=== PATIENT | male | born 1995 | race Two or more races ===

== ENCOUNTER 2018-09-11 17:50 | Emergency (ER) | payer BC ==
[2018-09-11] MEDS ORDERED: predniSONE 10 MG Tab ONE (18:20)
--- NOTE | 2018-09-11 23:32 | ER ---
DATE OF SERVICE: 09/11/2018 HISTORY OF PRESENT ILLNESS: A 23-year-old male here with complaints of both eyes being red and somewhat mattery. He states they burn and there is some discomfort. This started yesterday. The patient denies any injury to his eyes. He has had some eye infections in the past. He states he does wear contacts. He does not have glasses with him. OBJECTIVE: GENERAL APPEARANCE: The patient is awake and alert. No obvious distress. VITAL SIGNS: Reviewed as listed. EYES: Sclerae have multiple diffuse dilated vessels bilaterally. There is no active matter or drainage at this time, and the border around the iris on the right eye is more intensely inflamed consistent with iritis. DIAGNOSIS: Conjunctivitis, both eyes, with developing iritis, right eye. TREATMENT PLAN: Gentak eye drops will be started. I also will start the patient on p.o. prednisone 40 mg today, 30 mg tomorrow, 20 mg on day 3, and 10 mg on day 4. He is to remove his contacts as soon as he can. He tells me he needs them to drive back to their camp they were staying in. He is here on a fishing trip from [place]. The patient agrees to do this. Recheck should be in 2 days, sooner p.r.n. CRS/MODL /[id number]
== END 2018-09-11 18:21 | disposition home or self-care (01) ==
LOC: LB.ED 17:50
DX: H10.9 Unspecified conjunctivitis (principal); H20.9 Unspecified iridocyclitis
CPT/HCPCS: 99282; A9270-GY